=== PATIENT | female | born 1955 | race Caucasian/White ===

== ENCOUNTER 2022-07-09 11:59 | Emergency (ER) | payer MEDICARE, BC, OTHER | END 2022-07-09 15:14 | disposition home or self-care (01) | LOC: ERS 11:59 | DX: S82.61XA Displaced fracture of lateral malleolus of right fibula, initial encounter for closed fracture (principal); E03.9 Hypothyroidism, unspecified; E78.5 Hyperlipidemia, unspecified; W01.0XXA Fall on same level from slipping, tripping and stumbling without subsequent striking against object, initial encounter | CPT/HCPCS: 29515 ==

== ENCOUNTER 2024-03-09 09:51 | Outpatient (CLI) | payer MEDICARE, BC | END 2024-03-09 09:52 | disposition home or self-care (01) | LOC: BICRAD 09:51 | PROVIDERS: ATTEND Family Medicine | DX: M54.59 Other low back pain (principal) | CPT/HCPCS: 72081 ==